=== PATIENT | male | born 1950 | race African-American/Black ===

== ENCOUNTER 2017-07-27 07:02 | Inpatient (IN) | payer MEDICARE ==
[2017-07-27] MEDS ORDERED: Furosemide 40 MG/4 ML VIAL ONE (08:06)
[2017-07-27] MEDS ORDERED: Nitroglycerin 2% Ointment 1 INCH/1 GM Packet ONE (08:06)
[2017-07-27 08:07] LABS: Troponin I 0.042 ng/mL (< 0.028)
[2017-07-27 08:08] LABS: Mode NIPPV; Modified Allen's Test POSITIVE; Oxyhemoglobin 92.8 % (94.0-97.0); Pressure Support 10 cmH2O; Sodium 139 mmol/L (135-148); Vent YES
[2017-07-27] MEDS ORDERED: Dextrose 5% in Water 1,000 ML IV PRN (09:45)
[2017-07-27] MEDS ORDERED: Acetaminophen 325 MG TAB PO PRN (09:45)
[2017-07-27] MEDS ORDERED: Dextrose 50% Abboject 50 ML SYRINGE SLOW IVP PRN (09:45)
[2017-07-27 10:42] LABS: Lactic Acid - Sepsis 1.8 mmol/L (0.5-2.2)
--- NOTE | 2017-07-27 12:14 | CON ---
DATE OF CONSULTATION: 07/27/2017 REASON FOR CONSULTATION: Heart failure. HISTORY OF PRESENT ILLNESS: Mr. Lantigua is a 67-year-old -[place] gentleman who comes to [facility] for fever and shortness of breath. He was seen in the [place] ER. Temperature was 101.5. Chest x-ray showed pulmonary edema and possible infectious process, he was transferred for further e valuation and care. He has a history of kidney transplant. He was on dialysis for some time, but dior s now had a transfer for the last 7 years. He also has a history of atrial fibrillation. He has had ablations in the past as well as cardioversion 3 times, which were unsuccessful and he is now on rat e control strategy on amiodarone and Xarelto for stroke prophylaxis. He states for the last 2 weeks, he has been having a cough and increased shortness of breath to the point where he needed to come in to the hospital yesterday and currently he is on BiPAP for his oxygen level. Otherwise, denies any c hest pain, tightness or pressure. He does have a history of coronary artery disease with stents plac ed apparently back in 2011. He follows at [facility] with Dr. Villegas. He has been edgard d or he remembers being told that he had a weak heart, but he does remember the number percentage wis e. PAST MEDICAL HISTORY: 1. End-stage renal disease, status post renal transplant approximately 7 years ago. 2. History of chronic atrial fibrillation. 3. History of coronary artery disease, status post stent in 2011. 4. Sleep apnea. 5. History of heart failure, possibly systolic in the past. 6. Type 2 diabetes. 7. Hyperlipidemia. 8. Hypertension. PAST SURGICAL HISTORY: 1. Stent placement in 2011. 2. Kidney transplant in 2009. 3. Cardiac ablation some years ago, which was unsuccessful. OUTPATIENT MEDICATIONS: 1. Amlodipine 10 mg a day. 2. Carvedilol 25 mg twice a day. 3. Pravastatin 40 mg a day. 4. Prednisone 5 mg a day. 5. Xarelto 20 mg a day. 6. Amiodarone 200 mg. 7. Valsartan 80 mg a day. 8. Mycophenolate mofetil 1000 mg twice a day. ALLERGIES: No known drug allergies. REVIEW OF SYSTEMS: A 12-point review of system was done, it is all negative unless stated in the his tory of present illness. PHYSICAL EXAMINATION: VITAL SIGNS: Temperature 98.8, pulse 74, respiration rate 30, satting 100% on 100% BiPAP. Blood pre ssure is 135/67. GENERAL: Awake, alert, oriented x3, in moderate respiratory distress. HEENT: Normocephalic, atraumatic. NECK: Supple. LUNGS: Have reduces breath sounds bilaterally. CARDIOVASCULAR: S1, S2, distant heart sounds. No murmurs or rubs, irregularly irregular. ABDOMEN: Soft, positive bowel sounds. EXTREMITIES: 1+ edema. SKIN: Warm and dry. LABORATORY WORK: Reviewed. White count of 14, hemoglobin of 13, hematocrit 43, platelet count 223. Coags with an INR of 2.5. Chemistry: Troponin was 0.04, 0.04. BNP of 686. Potassium is 3.4, chlo ride 106, carbon dioxide 21, anion gap of 14, BUN of 21, creatinine 1.34, GFR of 64, glucose of 182, lactic acid was 1.2, total bilirubin 1.7, albumin of 3.8. UA was unremarkable. Chest x-ray shows diffuse interstitial alveolar infiltrates consistent with some pulmonary edema, dif ferential diagnosis includes ARDS on infectious process. EKG is reviewed, atrial fibrillation with a heart rate in the 70s-80s. ASSESSMENT AND PLAN: 1. Acute on chronic systolic versus diastolic heart failure. 2. Fever, likely pneumonia. 3. Status post kidney transplant. 4. Immunocompromise state secondary to kidney transplant and medications. 5. Coronary artery disease, stable at this time stents in the distant past. 6. Atrial fibrillation, rate controlled on Xarelto for stroke prophylaxis. PLAN: 1. We will get echocardiogram to assess LV function and valvular structures. 2. We will increase IV diuresis to 80 mg of IV Lasix b.i.d. 3. We will request records from [facility] to see what has been done to make sure there are no changes. Thank you for letting us participate in the care of your patient. We will follow.
[2017-07-27] MEDS ORDERED: Furosemide 40 MG/4 ML VIAL SLOW IVP SCH (14:00)
[2017-07-27] MEDS: Levofloxacin 750 mg/D5W 500 MG in Premix Bag 1 BAG IVPB SCH (14:58)
[2017-07-27] MEDS: Furosemide 100 MG/10 ML VIAL SLOW IVP SCH (14:58)
--- NOTE | 2017-07-27 15:18 | CON ---
DATE OF CONSULTATION: 07/27/2017 REQUESTING PHYSICIAN: Soni Meeks M.D. REASON FOR CONSULTATION: Acute respiratory failure related to CHF exacerbation and possibly pneumoni a. HISTORY OF PRESENT ILLNESS: Mr. Lantigua is a pleasant 67-year-old black male who presented to the [facility] Emergency Department with shortness of breath that developed last night when he laid down to re st. He has been coughing up some blood tinged sputum. He has had fever as high as 101.4. He was gi ehrnan some Lasix and put on BiPAP and feels a little better. PAST MEDICAL HISTORY: 1. End-stage renal disease requiring renal transplant in 2009. 2. Coronary stent placement. 3. Obstructive sleep apnea. 4. Congestive heart failure, unknown type. 5. Atrial fibrillation. 6. Hyperlipidemia. 7. Hypertension. PAST SURGICAL HISTORY: Kidney transplant in 2009, coronary stent placement, dialysis shunt in the lef t arm, and cardiac ablation. PSYCHIATRIC HISTORY: No history of depression or schizophrenia. SOCIAL HISTORY: Does not smoke, does not consume alcohol, does not use illicit drugs. ALLERGIES: None. MEDICATIONS PRIOR TO ADMISSION: Amlodipine 5 mg daily, carvedilol 25 mg twice daily, pravastatin 40 mg daily, prednisone 5 mg daily, Xarelto 20 mg daily, amiodarone 200 mg daily, valsartan 80 mg daily, and mycophenolate mofetil 500 mg twice daily. REVIEW OF SYSTEMS: He has had subjective fever and chills. No nausea or vomiting. He has some back pain. No hematemesis. No hematochezia, no hematuria, no dysuria. PHYSICAL EXAMINATION: VITAL SIGNS: Temperature 99.8, pulse 85, blood pressure 154/65, O2 sat 100% on BiPAP, respiratory ra te 26. GENERAL: He is currently breathing on the BiPAP. He is somewhat anxious. HEENT: Pupils react. Sclerae anicteric. Oropharynx clear. NECK: No adenopathy, no JVD. LUNGS: Coarse crackles bilaterally. CARDIOVASCULAR: S1, S2 regular, no murmur, rub or gallop. ABDOMEN: Soft, nontender, nondistended. EXTREMITIES: No clubbing, cyanosis, or edema. NEUROLOGIC: Grossly intact throughout. SKIN: Shows no changes. LABORATORY AND X-RAY FINDINGS: White blood count 14, hematocrit 43.9, platelet count 223. INR 2.5. Sodium 138, potassium 3.4, chloride 106, CO2 21, BUN 21, creatinine 1.3, glucose 182. Lactate 1.2. AST 12, ALT 15, alkaline phosphatase 70. BNP 686. Chest x-ray shows severe congestive changes bila terally. ASSESSMENT: 1. Acute congestive heart failure, systolic versus diastolic. 2. Acute respiratory failure requiring mechanical ventilation. 3. Possible underlying pneumonia versus viral illness. PLAN: 1. Continue BiPAP. 2. Check flu swab. 3. Empiric antibiotics. 4. Restart his Xarelto and hold the subcu heparin. 5. Cardiology consultation. 6. Check echocardiogram. 7. Continue immunosuppression for the time being. 8. Pepcid for GI prophylaxis. 9. Xarelto should cover DVT prophylaxis. Thank you for the referral. I will follow. Total time spent with patient 45 minutes.
--- NOTE | 2017-07-27 16:43 | HP ---
REASON FOR ADMISSION: Acute respiratory failure, acute CHF exacerbation, sepsis. HISTORY OF PRESENTING ILLNESS: The patient gives history of having shortness of breath from last 2 days. This has been progressively worsening. Here in the ER, patient is coughing up pink frothy sputum. This got worse to the point that he couldn't mobilize himself at home. Patient called EMS and was taken to [facility] from there, he was transferred here. Had a temperature of 101.5 degrees at [facility]. The patient states he has history of heart failure and he does not recall the exact ejection fraction. He had a renal transplant done in 2009 and has been passing adequate urine as far as he knows. He follows up with Dr. Hunter, his electromedical equipment technician in [place]. No complaints of urinary burning or frequency. No complaints of altered phlegm. No complaints of any sore anywhere. He has not had his flu shot for this year. PAST MEDICAL AND SURGICAL HISTORY: History of renal transplant done in 2009 at [facility] in [place], his primary electromedical equipment technician is Dr. Hunter, chronic atrial fibrillation on Xarelto, coronary artery disease with prior stenting done , obstructive sleep apnea, history of CHF, diabetes mellitus type 2, dyslipidemia, hypertension. He has had prior ablation done for his atrial fibrillation. CURRENT MEDICATIONS: Norvasc 10 mg daily, Coreg 25 mg twice daily, pravastatin 40 mg p.o. daily, prednisone 5 mg daily, Xarelto 20 mg daily, amiodarone 200 mg daily, valsartan 80 mg daily, mycophenolate 1000 mg p.o. twice daily. ALLERGIES: No known drug allergies. PERSONAL HISTORY: Does not abuse alcohol or drugs. No history of smoking. FAMILY HISTORY: Cannot be accurately obtained as patient is currently short of breath and is on BiPAP. He states he stays with his mom and sister. We will confirm their medical history once he is more stable. REVIEW OF SYSTEMS: Cannot be accurately obtained as patient is severely short of breath and he is on BiPAP. Does not tolerate being off BiPAP even for 30 seconds. PHYSICAL EXAMINATION: GENERAL: The patient is a 67-year-old male who is currently on BiPAP and saturating 93%. VITAL SIGNS: Blood pressure 166/64, pulse 86 per minute, respiratory rate 30 per minute, temperature 99.8 degrees Fahrenheit here and 101 at [facility] and saturating 84% on room air and 93% on BiPAP. NECK: Supple. There is elevated JVD. HEENT: Extraocular muscles intact. Pupils reacting to light. Oral cavity mucous membranes are moist. No exudates or congestion. CARDIOVASCULAR: S1, S2 heard. Regular rhythm. RESPIRATORY: Air entry 1+ bilateral. Scattered rales plus bilaterally. ABDOMEN: Soft, bowel sounds heard. No tenderness, rigidity or guarding. EXTREMITIES: No peripheral edema or calf tenderness. VASCULAR SYSTEM:. Peripheral pulses 1+ bilateral. No ischemic ulcerations or gangrene. CENTRAL NERVOUS SYSTEM: No gross focal deficits seen. Patient is lethargic, but oriented well. PSYCHIATRIC: No hallucinations or delusions. LABORATORY AND X-RAY FINDINGS: White count of 14, H&H 13 and 43, platelet count 223, MCV is 94 with 86% neutrophils and 7% bands. PT/INR/PTT is 27, 2.5 and 42. Blood gas done in the ER shows a pH 7.38, pCO2 39, pO2 of 74, bicarbonate is 22. BNP 686. Troponin I is indeterminate at 0.04. BUN 21, creatinine 1.34, serum bicarbonate 21, potassium 3.4, glucose 182, total bilirubin 1.7. Liver enzymes within normal limits. Albumin is 3.8. Chest x- ray done shows pulmonary vascular congestion. EKG done shows sinus rhythm at 84 beats per minute. There is LBBB seen. CLINICAL IMPRESSION AND PLAN: The patient will be admitted to IM for acute respiratory failure with hypoxia due to congestive heart failure exacerbation. We will obtain an echo with 2D Doppler for LV function. He will be on Lasix 40 mg IV q.12 hourly. We will obtain blood and urine cultures. Please note patient is immunosuppressed due to transplant medications for his kidneys and we will place him on cefepime, vancomycin, and Levaquin for now. His renal function will be closely monitored. He will also continue him on a smaller dose of Coreg to accommodate for diuresis. We will continue his aspirin, amiodarone, atorvastatin, Xarelto and valsartan as before. He will be on a small dose of steroids for the first 24 hours and will be rapidly tapered to his baseline dose of 5 mg, which he takes for his transplant. I have discussed his findings with Dr. Jeff, who will be consulted for pulmonary critical care. We will also consult Dr. Johnson for Infectious Disease in view of his sepsis and Dr. Early, who is cook mayonnaise for Cardiology. We will continue to closely monitor him in ICU. CARLY
--- NOTE | 2017-07-27 16:47 | CON ---
DATE OF CONSULTATION: 07/27/2017 REASON FOR CONSULTATION: Pneumonitis. HISTORY OF PRESENT ILLNESS: A 67-year-old patient who has a history of type 2 diabetes, end-stage re nal disease with prior renal transplant, coronary artery disease, who was in his usual state of healt h until about 2 weeks prior to admission when he developed progressively worsening cough, mostly dry and then became more productive. On the day of admission, he noticed fever up to 101.4 and had some hemoptysis. He was seen at [facility] and given nebulization, IV fluids, and Zosyn and tr ansferred to the hospital. Initial findings included BP 165/65, pulse 86, respirations 30, temperatu re 99.8, O2 sat 84% on room air and 97% on 3 liters supplementation O2. The examination showed arias l HEENT exam. Neck was supple. Lungs with rhonchi diffusely scattered through lung knight. Cardiov ascular examination appeared normal. Abdomen soft without tenderness. Extremity examination unremar kable. Neurological examination was grossly nonfocal. Initial labs with white cell count 5.7, hemog lobin 12, MCV 87, platelets 330 with a normal differential. INR 2.5 and creatinine 1.34, sodium 138, potassium 3.4. Liver profile with a bilirubin of 1.7, normal transaminases and alkaline phosphatase . Troponin 0.04 and BNP 1075, albumin 3.8. His baseline creatinine is 1.04 from 06/2012. Currently , Mr. Lantigua is admitted to the ICU with BiPAP. He is awake, alert, oriented, pleasant, follows co mmands. He denies any headaches, no visual symptoms, sore throat, odynophagia, or dysphagia, cough h as subsided somewhat, feels more comfortable, no chest pain or abdominal pain. Voiding without diffi culty. No back pain or joint symptoms. No skin disorder. No neurological symptoms. PAST MEDICAL HISTORY: Type 2 diabetes, end-stage renal disease with renal transplant for a few years now, coronary artery disease, atrial fibrillation on Coumadin, hyperlipidemia, hypertension. PAST SURGICAL HISTORY: Includes stenting of coronary arteries, kidney transplant in 2009, cardiac ab lation, which did not work. MEDICATIONS: Norvasc, Coreg, pravastatin, prednisone, Xarelto, amiodarone, valsartan, mycophenolate. ALLERGIES: None. PHYSICAL EXAMINATION: VITAL SIGNS: T-max 98.8, blood pressure 136/65, pulse 78, respirations 30, saturation 100% on FIO2. SKIN: With no areas of skin lesions. Peripheral IV access. No Pringle catheter. HEENT: Ocular movements are conjugate. Sclerae white. Pupils are equal. Oral cavity with numerous teeth with quite a bit of decay and gum disease. No thrush. NECK: Supple. No jugular venous distention. LUNGS: With symmetric air entry with scattered rhonchi and few crackles in both right and left hemit horaces. CARDIOVASCULAR: S1, S2, without obvious murmurs. Irregular rate. No S3 noted: ABDOMEN: Somewhat protuberant, soft, not tender. No ascites, no organomegaly. No bladder distentio n. GENITOURINARY: Genital examination normal. EXTREMITIES: No joint inflammatory activity noted. No edema. Pulses 1+ in dorsalis pedis. He move s extremities equally on command. Plantar responses are flexor. Cognitive function appears to be in tact. LABORATORY DATA: Sodium 138, creatinine 1.34. Other values for labs as noted before. White cell co unt is up to 14,000, hemoglobin 13, platelets 223 with 86% neutrophils. Influenza A and B negative. Two sets of blood cultures are pending. Chest x-ray with diffuse bilateral pulmonary infiltrates. CURRENT MEDICATIONS: Amiodarone, aspirin, atorvastatin, Coreg, cefepime, guaifenesin, levofloxacin, vancomycin. ASSESSMENT: 1. Diabetes type 2. 2. Renal transplant with adequate renal function. 3. Subacute onset of cough with fever, diffuse pulmonary infiltrates. 4. Atrial fibrillation, on Xarelto. 5. An element of hemoptysis. DISCUSSION: Differential diagnosis includes community-acquired pneumonitis either secondary to viral or bacterial pathogens, usual community acquired pathogens versus an opportunistic infectious proces s versus a noninfectious inflammatory process including vasculitis versus CHF. Hemoptysis may be rel ated to the fact the patient takes Xarelto and then superimposed respiratory tract process. Submit a ssays for the community-acquired pathogens as well as opportunistic pathogens. Check HIV serology. May need a bronchoscopy with BAL for diagnostic purposes.
[2017-07-27] MEDS: HumaLOG 300 UNITS/3 ML VIAL SC PRN ×2 (17:51→21:24)
[2017-07-27] MEDS: Vancomycin HCl 1 GM in Premix Bag 1 BAG IVPB SCH (17:53)
[2017-07-27] MEDS ORDERED: Heparin 5,000 UNITS/ML VIAL SC SCH (21:00)
[2017-07-27] MEDS ORDERED: Pravastatin Sodium 40 MG TAB PO SCH ×2 (21:00)
[2017-07-27] MEDS ORDERED: Cefepime 1 GM in Sodium Chloride 0.9% 100 ML IVPB SCH (21:00)
[2017-07-27] MEDS ORDERED: FLU VACC TS2017-18 (>65YR) 0.5 ML SYRINGE IM ONE (21:00)
[2017-07-27] MEDS ORDERED: Atorvastatin Calcium 10 MG TAB PO SCH (21:00)
[2017-07-27] MEDS: Mycophenolate 250 MG CAP PO SCH (21:19)
[2017-07-27] MEDS: Atorvastatin Calcium 10 MG TAB PO SCH (21:20)
[2017-07-27] MEDS: Famotidine 20 MG TAB PO SCH (21:20)
[2017-07-27] MEDS: Cefepime 1 GM, Admixture Fee 1 EACH in Sterile Water 10 ML SLOW IVP SCH (21:21)
[2017-07-27] MEDS: Docusate 100 MG CAP PO SCH (21:21)
[2017-07-27] MEDS: Carvedilol 6.25 MG TAB PO SCH (21:21)
[2017-07-28 05:20] LABS: Prothrombin Time 23.9 SEC (12.0-14.7)
[2017-07-28 05:27] LABS: #Lymphocytes 0.3 thou/uL (1.20-3.40); #Monocytes 0.2 thou/uL (0.11-0.59); #Neutrophils 12.7 thou/uL (1.40-6.50); %Eosinophils 0.1 % (0.0-10.0); %Lymphocytes 2.6 % (21.0-51.0); %Monocytes 1.4 % (0.0-10.0); Hematocrit 42.6 % (42.0-52.0); Mean Platelet Volume 7.2 fL (7.4-10.4); Red Blood Cell (RBC) Count 4.49 mill/uL (4.70-6.10); White Blood Cell (WBC) Count 13.3 thou/uL (4.8-10.8)
[2017-07-28 05:41] LABS: Anion Gap 14 mmol/L (10-20); BUN (Urea Nitrogen) 25 mg/dL (8.4-25.7); Calc. Creatinine Clearance 64 mL/min (70-130); Calcium 9.3 mg/dL (7.8-10.44); Carbon Dioxide 24 mmol/L (23-31); Chloride 103 mmol/L (98-107); Estimated GFR-MDRD 68
[2017-07-28] MEDS ORDERED: Rivaroxaban 10 MG TAB PO SCH (06:00)
[2017-07-28] MEDS: HumaLOG 300 UNITS/3 ML VIAL SC PRN ×4 (06:12→21:40)
[2017-07-28] MEDS: Furosemide 100 MG/10 ML VIAL SLOW IVP SCH (06:14)
[2017-07-28] MEDS: Vancomycin HCl 1 GM in Premix Bag 1 BAG IVPB SCH ×2 (06:15→17:21)
[2017-07-28] MEDS ORDERED: Vancomycin HCl 1 GM in Premix Bag 1 BAG IVPB SCH (09:00)
[2017-07-28] MEDS: Famotidine 20 MG TAB PO SCH ×2 (09:09→21:32)
[2017-07-28] MEDS: Mycophenolate 250 MG CAP PO SCH ×2 (09:09→21:35)
[2017-07-28] MEDS: Docusate 100 MG CAP PO SCH ×2 (09:09→21:32)
[2017-07-28] MEDS: Carvedilol 6.25 MG TAB PO SCH ×2 (09:09→21:32)
[2017-07-28] MEDS: Amiodarone 200 MG TAB PO SCH (09:09)
--- NOTE | 2017-07-28 09:09 | PRG ---
DATE OF SERVICE: 07/18/2017 SUBJECTIVE: He feels better. He has been on BiPAP since last night. PHYSICAL EXAMINATION: VITAL SIGNS: Temperature 97.7, pulse 82, respirations 24, blood pressure 137/60, 24-hour intake 1117 , output 3170. HEENT: Unremarkable. NECK: No JVD. LUNGS: Inspiratory crackles at both bases. CARDIAC: S1 and S2 regular. ABDOMEN: Soft. EXTREMITIES: No edema. LABORATORY DATA: White blood cell count 13.3, hematocrit 42, platelet count 223. Sodium 137, potass ium 3.5, chloride 103, CO2 24, BUN 25, creatinine 1.2, glucose 223. INR 2.1. ASSESSMENT: 1. Pulmonary edema, which has improved with diuresis. 2. Acute respiratory failure which is improved to the point where he is off mechanical ventilation. 3. History of renal transplant with current immunosuppression. PLAN: 1. Can transfer to the floor. 2. Repeat chest x-ray. 3. Continue antibiotics. 4. Continue diuresis. 5. Discussed with the patient.
[2017-07-28] MEDS: Levofloxacin 750 mg/D5W 500 MG in Premix Bag 1 BAG IVPB SCH (09:12)
[2017-07-28] MEDS: Valsartan 80 MG TAB PO SCH ×2 (09:19→09:20)
--- NOTE | 2017-07-28 09:51 | PDOC.PN ---
- Subjective Encounter Start Date: 07/28/17 Encounter Start Time: 08:15 Subjective: breathing better, no sob/chest pain -: still bringing up sputum which is blood tinged - Objective Resuscitation Status: Resuscitation Status FULL:Full Resuscitation MAR Reviewed: Yes Vital Signs & Weight: Vital Signs (12 hours) Temp Pulse Resp BP Pulse Ox 07/28/17 09:09 131/60 07/28/17 07:56 97.7 F 87 16 100 07/28/17 07:00 97.7 F 07/28/17 06:09 78 28 H 100 07/28/17 04:00 98.6 F 07/28/17 00:38 75 25 H 98 07/28/17 00:00 98.8 F Weight Weight 179 lb 7.3 oz Most Recent Monitor Data Heart Rate from ECG 81 NIBP 130/62 NIBP BP-Mean 92 Respiration from ECG 41 SpO2 98 I&O: 07/27/17 07/28/17 07/29/17 06:59 06:59 06:59 Intake Total 1117 240 Output Total 3170 600 Balance -2052 Result Diagrams: 07/28/17 04:54 07/28/17 04:54 Additional Labs: Accuchecks 07/28/17 07/27/17 07/27/17 05:44 21:16 17:06 POC Glucose 198 H 235 H 189 H 07/27/17 11:53 POC Glucose 144 H Phys Exam - Physical Examination HEENT: PERRLA, moist MMs Neck: no JVD, supple Respiratory: no wheezing, no rales rhonchi++ Cardiovascular: RRR, no significant murmur Gastrointestinal: soft, non-tender, positive bowel sounds Musculoskeletal: no edema, pulses present Neurological: non-focal, moves all 4 limbs Psychiatric: A&O x 3 Dx/Plan (1) Acute exacerbation of CHF (congestive heart failure) Code(s): I50.9 - HEART FAILURE, UNSPECIFIED Status: Acute Qualifiers: Congestive heart failure type: diastolic Qualified Code(s): I50.33 - Acute on chronic diastolic (congestive) heart failure Comment: ef of 50% (2) PNA (pneumonia) Code(s): J18.9 - PNEUMONIA, UNSPECIFIED ORGANISM Status: Acute Qualifiers: Pneumonia type: due to unspecified organism Laterality: bilateral (3) Immunosuppressed status Code(s): D89.9 - DISORDER INVOLVING THE IMMUNE MECHANISM, UNSPECIFIED Status: Chronic (4) H/O kidney transplant Status: Chronic (5) Sepsis Code(s): A41.9 - SEPSIS, UNSPECIFIED ORGANISM Status: Acute Qualifiers: Sepsis type: sepsis due to unspecified organism Qualified Code(s): A41.9 - Sepsis, unspecified organism (6) Acute respiratory failure with hypoxia Code(s): J96.01 - ACUTE RESPIRATORY FAILURE WITH HYPOXIA Status: Resolved Comment: is off bipap from last night (7) HTN (hypertension) Code(s): I10 - ESSENTIAL (PRIMARY) HYPERTENSION Status: Chronic Qualifiers: Hypertension type: essential hypertension Qualified Code(s): I10 - Essential (primary) hypertension (8) CAD (coronary artery disease) Code(s): I25.10 - ATHSCL HEART DISEASE OF [place] CORONARY ARTERY W/O ANG PCTRS Status: Chronic Qualifiers: Coronary Disease-Associated Artery/Lesion type: [place] artery [place] vs. transplanted heart: [place] heart Associated angina: without angina Qualified Code(s): I25.10 - Atherosclerotic heart disease of [place] coronary artery without angina pectoris - Plan is on broad spectrum antibiotics due to immunosuppressed state -: cefepime, levaq and vanc. Await full cultures -: may tx to telemetry -: cxr this am looks better, has diuresed well -: may scale back his lasix to 40 q12h if ok with cardio * . Review of Systems - Medications/Allergies Allergies/Adverse Reactions: Allergies Allergy/AdvReac Type Severity Reaction Status Date / Time No Allergy Information Allergy Verified 07/27/17 15:42 Available Medications: Current Medications Acetaminophen (Tylenol) 650 mg PO Q4H PRN PRN Reason: Headache/Fever or Pain Albuterol/Ipratropium (Duoneb) 3 ml NEB [id number] [facility] Last Admin: 07/28/17 06:09 Dose: 3 ml Amiodarone HCl (Cordarone) 200 mg PO DAILY [facility] Last Admin: 07/28/17 09:09 Dose: 200 mg Aspirin (Aspirin Chewable) 81 mg PO DAILY [facility] Last Admin: 07/28/17 09:09 Dose: 81 mg Atorvastatin Calcium (Lipitor) 10 mg PO HS [facility] Last Admin: 07/27/17 21:20 Dose: 10 mg Carvedilol (Coreg) 6.25 mg PO BID [facility] Last Admin: 07/28/17 09:09 Dose: 6.25 mg Dextrose/Water (Dextrose 50%) 25 gm SLOW IVP PRN PRN PRN Reason: Hypoglycemia Docusate Sodium (Colace) 100 mg PO BID [facility] Last Admin: 07/28/17 09:09 Dose: 100 mg Famotidine (Pepcid) 20 mg PO BID [facility] Last Admin: 07/28/17 09:09 Dose: 20 mg Furosemide (Lasix) 80 mg SLOW IVP 0600,1400 [facility] Last Admin: 07/28/17 06:14 Dose: 80 mg Glucagon (Glucagon) 1 mg IM PRN PRN PRN Reason: Hypoglycemia Guaifenesin/Dextromethorphan (Robitussin Dm) 15 ml PO Q4H PRN PRN Reason: Cough Dextrose/Water (D5w) 1,000 mls @ 0 mls/hr IV .Q0M PRN; As Directed PRN Reason: Hypoglycemia Levofloxacin 500 mg/ Device 100 mls @ 100 mls/hr IVPB 1100 [facility] Last Admin: 07/28/17 09:12 Dose: 100 mls Cefepime HCl 1 gm/Miscellaneous Medication 1 each/ Sterile Water 10 mls @ 120 mls/hr SLOW IVP Q12HR [facility] Last Admin: 07/27/17 21:21 Dose: 10 mls Vancomycin HCl 1 gm/ Device 200 mls @ 200 mls/hr IVPB 0600,1800 [facility] Last Admin: 07/28/17 06:15 Dose: 200 mls Insulin Human Lispro (Humalog) 0 units SC .MILD SLIDING SCALE PRN PRN Reason: Mild Correctional Scale Last Admin: 07/28/17 06:12 Dose: 2 unit/kg Methylprednisolone Sodium Succinate (Solu-Medrol) 20 mg IVP Q8HR [facility] Last Admin: 07/28/17 06:14 Dose: 20 mg Miscellaneous Medication (Pharmacy To Dose) 0 each IVPB ASDIR [facility] Mycophenolate Mofetil (Cellcept) 1,000 mg PO BID [facility] Last Admin: 07/28/17 09:09 Dose: 1,000 mg Pneumococcal Polyvalent Vaccine (Pneumovax 23) 0.5 ml IM .ONCE ONE Stop: 07/29/17 15:46 Rivaroxaban (Xarelto) 20 mg PO 1700 [facility] Sodium Chloride (Flush - Normal Saline) 10 ml IVF Q12HR [facility] Last Admin: 07/28/17 09:12 Dose: 10 ml Sodium Chloride (Flush - Normal Saline) 10 ml IVF PRN PRN PRN Reason: Saline Flush Valsartan (Diovan) 80 mg PO DAILY [facility] Last Admin: 07/28/17 09:20 Dose: 80 mg
[2017-07-28] MEDS: Cefepime 1 GM, Admixture Fee 1 EACH in Sterile Water 10 ML SLOW IVP SCH ×2 (10:21→21:34)
--- NOTE | 2017-07-28 10:39 | RAD ---
PORTABLE CHEST: Date: 07/28/17 HISTORY: Pneumonia. COMPARISON: 07/27/17. FINDINGS/IMPRESSION: Mild cardiomegaly with prominent aortic calcification. There is vascular engorgement. Interstitial an d hazy alveolar opacity in the mid and lower lungs could represent edema or infiltrate. Not significa ntly changed from 07/27/17. POS: [facility]
--- NOTE | 2017-07-28 11:01 | PDOC.CTH ---
<Blanca Tolbert - Last Filed: 07/28/17 10:55> Cardiology Progress Note - Subjective The pt seen and examined. No overnight events. No cardiac complaints. No SOB or distress with 1.5LNC. Reported that he had long hx of Aflutter/Afib with multiple Cardioversion and Aflutter ablation by Dr Villegas in [place] and Dr Vincent, in [place]. He denied palpitation, fluttering or other cardiac complaints. At this moment, the pt does not want any medication adjustment or procedure for his AFlutter/Afib. - Objective Vital Signs Temp Pulse Resp BP Pulse Ox 07/28/17 09:09 131/60 07/28/17 07:56 97.7 F 87 16 100 07/28/17 07:00 97.7 F 07/28/17 06:09 78 28 H 100 07/28/17 04:00 98.6 F 07/28/17 00:38 75 25 H 98 07/28/17 00:00 98.8 F Weight 179 lb 7.3 oz 07/27/17 07/28/17 07/29/17 06:59 06:59 06:59 Intake Total 1117 480 Output Total 3170 900 Balance -9993 -420 - Physical Examination General/Neuro: alert & oriented x3 Neck: no JVD present Lungs: other: (coases and diminished at bases) Heart: other: (Irregular) Abdomen: other: (soft, but distended) Extremities: other: (No edema) - Telemetry Telemetry Rhythm: AFlutter with HR 70-80s - Labs Result Diagrams: 07/28/17 04:54 07/28/17 04:54 Troponin/CKMB CK-MB (CK-2) 1.2 ng/mL (0-6.6) 07/27/17 07:34 Troponin I 0.042 ng/mL (< 0.028) H 07/27/17 07:34 - Assessment/Plan 1. Acute on chronic systolic HF - Stable; change Lasix from 80mg to 40mg IV BID ; Echo on 07/27/17 showed EF 81-55% with mild LVH, mild LAE, mild MR and TR; cont. monitor 2. PNA - on IV antibiotics; managed by PCP 3. Immunosuppressed status 2ndary to hx of Kidney tx in 2009 - followed by ID service 4. Aflutter/Afib - Rate well controlled with Amiodarone; on Xarelto; at this moment, he does not want to adjust or have any procedure for his current AFlutter/Afib. CAD with Hx of Stent in 2011 - stable with BBlocker and ASA; no LINDSEY due to hx of CKD 5. HTN - stable with current medication; cont. monitor 6. DM type 2 - ACHS BG check with insulin SS; managed by PCP 7. Hyperlipidemia - on Statin medication MAR reviewed Review of Systems - Review of Systems Constitutional: reports: no symptoms reported EENTM: reports: no symptoms reported Respiratory: reports: no symptoms reported Cardiac (ROS): reports: no symptoms reported ABD/GI: reports: no symptoms reported : reports: no symptoms reported Musculoskeletal: reports: no symptoms reported <Linus Lambert - Last Filed: 07/28/17 17:05> Cardiology Progress Note - Objective Vital Signs Temp Pulse Pulse Pulse Resp BP BP 07/28/17 12:53 81 13 07/28/17 12:00 97.8 F 07/28/17 09:29 76 101 H 129/65 07/28/17 09:09 131/60 07/28/17 07:56 97.7 F 87 16 07/28/17 07:00 97.7 F 07/28/17 06:09 78 28 H BP Pulse Ox Pulse Ox Pulse Ox 07/28/17 12:53 98 07/28/17 12:00 07/28/17 09:29 145/72 H 93 L 93 L 07/28/17 09:09 07/28/17 07:56 100 07/28/17 07:00 07/28/17 06:09 100 Weight 179 lb 7.3 oz 07/27/17 07/28/17 07/29/17 06:59 06:59 06:59 Intake Total 1117 960 Output Total 1042 1195 Balance -2052 -614 - Labs Result Diagrams: 07/28/17 04:54 07/28/17 04:54 Troponin/CKMB CK-MB (CK-2) 1.2 ng/mL (0-6.6) 07/27/17 07:34 Troponin I 0.042 ng/mL (< 0.028) H 07/27/17 07:34 - Assessment/Plan Pt. seen and eval. by me. I agree with the A/P by the BONE CRUSHER. His rate is well controlled. Continue present cardiac meds.
[2017-07-28] MEDS: Furosemide 40 MG/4 ML VIAL SLOW IVP SCH (15:20)
[2017-07-28] MEDS: Atorvastatin Calcium 10 MG TAB PO SCH (21:38)
[2017-07-28 23:55] VITALS: BMI 26.9
--- NOTE | 2017-07-29 01:41 | PRG ---
DATE OF SERVICE: 07/28/2017 SUBJECTIVE: The patient is not on BiPAP anymore. He is feeling much better. His account now is clear and he basically remembers starting with cough and then had a fever, progressively worsening dyspnea, and hemoptysis. His temperature is normal, although it has been normal all along. OBJECTIVE: VITAL SIGNS: Blood pressure 130/60, heart rate 76, O2 sat 93 with nasal cannula. GENERAL: Awake, alert, oriented. LUNGS: With symmetric air entry with a few crackles here and there. HEART: S1, S2, regular rate. ABDOMEN: Soft, not distended. EXTREMITIES: Moves all extremities equally. LABORATORY DATA: White cell count today is 13.3, hemoglobin 13, platelets 223 with 95% neutrophils. Sodium 137, creatinine 1.28, GFR estimated at 68. The respiratory virus PCR panel negative. Blood cultures thus far negative. The chest x-ray repeat about the same. The patient had echocardiogram done, which showed an EF of 50% to 55%, multiple branch block morphology, normal valves, otherwise mildly elevated pulmonary artery pressure. ASSESSMENT AND DISCUSSION: Type 2 diabetes, renal transplant, adequate renal function, subacute onset of cough with fever, diffuse pulmonary infiltrates, atrial fibrillation on Xarelto, element of hemoptysis. Again, community- acquired pneumonitis, either with the usual viral or bacterial pathogens versus an opportunistic infectious process with the concern for Pneumocystis sp. Assays are pending and the viral assays are negative. Continue current management. MTDD
[2017-07-29] MEDS: Furosemide 40 MG/4 ML VIAL SLOW IVP SCH ×2 (05:13→14:52)
[2017-07-29 05:24] LABS: #Lymphocytes 0.4 thou/uL (1.20-3.40); #Monocytes 0.4 thou/uL (0.11-0.59); #Neutrophils 14.5 thou/uL (1.40-6.50); %Lymphocytes 2.5 % (21.0-51.0); %Monocytes 2.5 % (0.0-10.0); Hematocrit 41.4 % (42.0-52.0); Mean Platelet Volume 7.1 fL (7.4-10.4); Red Blood Cell (RBC) Count 4.37 mill/uL (4.70-6.10); White Blood Cell (WBC) Count 15.3 thou/uL (4.8-10.8)
[2017-07-29 05:50] LABS: Vancomycin, Trough 13.3 ug/mL
[2017-07-29 05:51] LABS: Anion Gap 14 mmol/L (10-20); BUN (Urea Nitrogen) 32 mg/dL (8.4-25.7); Calc. Creatinine Clearance 78 mL/min (70-130); Calcium 8.9 mg/dL (7.8-10.44); Carbon Dioxide 23 mmol/L (23-31); Chloride 99 mmol/L (98-107); Estimated GFR-MDRD 72
[2017-07-29] MEDS: Vancomycin HCl 1 GM in Premix Bag 1 BAG IVPB SCH ×2 (06:30→18:31)
[2017-07-29] MEDS: HumaLOG 300 UNITS/3 ML VIAL SC PRN ×4 (07:44→22:27)
--- NOTE | 2017-07-29 08:55 | PDOC.CTH ---
<Blanca Tolbert - Last Filed: 07/29/17 08:53> Cardiology Progress Note - Subjective the pt seen and examined. No overnight events. No cardiac complaints. He has cont. coughing since this AM. - Objective Vital Signs Temp Pulse Resp BP BP BP Pulse Ox 07/29/17 08:41 97.8 F 89 18 132/67 97 07/29/17 07:11 80 14 07/29/17 04:00 97.8 F 82 24 H 137/65 94 L 07/29/17 00:24 78 16 97 07/28/17 22:35 98.0 F 78 24 H 94 L 07/28/17 22:15 98.0 F 86 24 H 167/79 H 94 L 07/28/17 21:32 150/62 H Weight 202 lb 07/28/17 07/29/17 07/30/17 06:59 06:59 06:59 Intake Total 1117 1700 Output Total 3170 1975 Balance -2052 - Physical Examination General/Neuro: alert & oriented x3 Neck: no JVD present Lungs: other: (coases and very diminizhed at bases) Heart: other: (irregular) Abdomen: soft Extremities: other: (No edema) - Telemetry Telemetry Rhythm: Aflutter 70-80s - Labs Result Diagrams: 07/29/17 04:59 07/29/17 04:59 Troponin/CKMB CK-MB (CK-2) 1.2 ng/mL (0-6.6) 07/27/17 07:34 Troponin I 0.042 ng/mL (< 0.028) H 07/27/17 07:34 - Assessment/Plan 1. Acute on chronic systolic HF - Stable; change Lasix from 80mg to 40mg IV BID ; Echo on 07/27/17 showed EF 50-55% with mild LVH, mild LAE, mild MR and TR; cont. monitor 2. PNA - on IV antibiotics; Order PRN cough medication; managed by PCP 3. Immunosuppressed status 2ndary to hx of Kidney tx in 2009 - followed by ID service 4. Aflutter/Afib - Rate well controlled with Amiodarone; on Xarelto; at this moment, he does not want to adjust or have any procedure for his current AFlutter/Afib at this moment. CAD with Hx of Stent in 2012 - stable with BBlocker and ASA; no LINDSEY due to hx of CKD 5. HTN - stable with current medication; cont. monitor 6. DM type 2 - ACHS BG check with insulin SS; managed by PCP 7. Hyperlipidemia - on Statin medication MAR reviewed * Start KCl 40mEq PO x 1 now and 20mEq PO daily from tomorrow Review of Systems - Review of Systems Constitutional: reports: no symptoms reported EENTM: reports: no symptoms reported Respiratory: reports: see HPI Cardiac (ROS): reports: no symptoms reported ABD/GI: reports: no symptoms reported : reports: no symptoms reported Musculoskeletal: reports: no symptoms reported Skin: reports: no symptoms reported <Linus Lambert - Last Filed: 07/29/17 11:36> Cardiology Progress Note - Objective Vital Signs Temp Pulse Resp BP BP Pulse Ox 07/29/17 09:54 150/62 H 07/29/17 08:41 97.8 F 89 18 132/67 97 07/29/17 07:11 80 14 07/29/17 04:00 97.8 F 82 24 H 137/65 94 L 07/29/17 00:24 78 16 97 Weight 202 lb 07/28/17 07/29/17 07/30/17 06:59 06:59 06:59 Intake Total 1117 1700 Output Total 3170 1974 - Labs Result Diagrams: 07/29/17 04:59 07/29/17 04:59 Troponin/CKMB CK-MB (CK-2) 1.2 ng/mL (0-6.6) 07/27/17 07:34 Troponin I 0.042 ng/mL (< 0.028) H 07/27/17 07:34 - Assessment/Plan pt. seen and evaluated. I agree with the A/P by the ADMIN SECRETARY. cardiac status is stable. I will sign off. if any cardiac isuues please page me again. He wishes to follow up with his prior account executive after d/c.
[2017-07-29] MEDS ORDERED: Potassium Chloride 20 MEQ TAB PO SCH (09:15)
[2017-07-29] MEDS: Amiodarone 200 MG TAB PO SCH (09:54)
[2017-07-29] MEDS: Famotidine 20 MG TAB PO SCH ×2 (09:54→20:30)
[2017-07-29] MEDS: Carvedilol 6.25 MG TAB PO SCH ×2 (09:54→20:30)
[2017-07-29] MEDS: Docusate 100 MG CAP PO SCH ×2 (09:54→20:29)
[2017-07-29] MEDS: Mycophenolate 250 MG CAP PO SCH ×2 (09:55→20:32)
[2017-07-29] MEDS: Potassium Chloride 20 MEQ TAB PO SCH (09:55)
--- NOTE | 2017-07-29 10:05 | PRG ---
DATE OF SERVICE: 07/29/2017 Mr. Lantigua is feeling better today, had no acute complaints. PHYSICAL EXAMINATION: VITAL SIGNS: Temperature 97.8, pulse 89, respirations 18, O2 sat 97% on 2 liters, blood pressure 132 /67. HEENT: Unremarkable. NECK: No JVD. CHEST: Clear except at the bases where he has crackles. CARDIAC: S1 and S2 regular. ABDOMEN: Soft. EXTREMITIES: No edema. LABORATORY DATA: Sodium 133, potassium 3.4, chloride 99, CO2 of 23, BUN 32, creatinine 1.2, glucose 318. White blood cell count 15.3, hematocrit 41.4, platelet count 265. ASSESSMENT: 1. Diastolic cardiac dysfunction with congestive heart failure. 2. Possible pneumonia. 3. Atrial flutter/atrial fibrillation. RECOMMENDATIONS: 1. Continue current antibiotics. 2. IV steroids. 3. Diuretics.
[2017-07-29] MEDS: Cefepime 1 GM, Admixture Fee 1 EACH in Sterile Water 10 ML SLOW IVP SCH ×2 (10:08→20:30)
[2017-07-29] MEDS: Cepastat Lozenges 1 LOZ PO PRN ×2 (10:43→20:38)
[2017-07-29] MEDS: Levofloxacin 750 mg/D5W 500 MG in Premix Bag 1 BAG IVPB SCH (10:44)
--- NOTE | 2017-07-29 10:59 | PDOC.PN ---
- Subjective Encounter Start Date: 07/29/17 Encounter Start Time: 12:00 Subjective: Some recurrent coughing overnight, minimal suptum. Feels much -: better than at admission. - Objective Resuscitation Status: Resuscitation Status FULL:Full Resuscitation MAR Reviewed: Yes Vital Signs & Weight: Vital Signs (12 hours) Temp Pulse Resp BP BP Pulse Ox 07/29/17 09:54 150/62 H 07/29/17 08:41 97.8 F 89 18 132/67 97 07/29/17 07:11 80 14 07/29/17 04:00 97.8 F 82 24 H 137/65 94 L 07/29/17 00:24 78 16 97 Weight Weight 202 lb Most Recent Monitor Data Heart Rate from ECG 85 NIBP 150/62 NIBP BP-Mean 104 Respiration from ECG 31 SpO2 91 I&O: 07/28/17 07/29/17 07/30/17 06:59 06:59 06:59 Intake Total 1117 1700 Output Total 3170 1974 Result Diagrams: 07/29/17 04:59 07/29/17 04:59 Additional Labs: Accuchecks 07/29/17 07/28/17 07/28/17 04:20 21:23 17:14 POC Glucose 270 H 317 H 239 H 07/28/17 12:37 POC Glucose 290 H Phys Exam - Physical Examination Constitutional: NAD HEENT: moist MMs Respiratory: no wheezing, no rales, no rhonchi Cardiovascular: RRR, no significant murmur Gastrointestinal: soft, positive bowel sounds Neurological: non-focal, moves all 4 limbs Psychiatric: normal affect, A&O x 3 Dx/Plan (1) PNA (pneumonia) Code(s): J18.9 - PNEUMONIA, UNSPECIFIED ORGANISM Status: Acute Qualifiers: Pneumonia type: due to unspecified organism Laterality: bilateral Plan: Abx day #3 Comment: community acquired, on chronic immunosupression, continue antibiotics Cefepime, Levaquin, and Vanc (2) Acute exacerbation of CHF (congestive heart failure) Code(s): I50.9 - HEART FAILURE, UNSPECIFIED Status: Acute Qualifiers: Congestive heart failure type: diastolic Qualified Code(s): I50.33 - Acute on chronic diastolic (congestive) heart failure Plan: Improving with diuresis Comment: ef of 50% (3) Sepsis Code(s): A41.9 - SEPSIS, UNSPECIFIED ORGANISM Status: Acute Qualifiers: Sepsis type: sepsis due to unspecified organism Qualified Code(s): A41.9 - Sepsis, unspecified organism Plan: improving, no further fever, leukocytosis persistent up to 15,000 (4) H/O kidney transplant Status: Chronic (5) Immunosuppressed status Code(s): D89.9 - DISORDER INVOLVING THE IMMUNE MECHANISM, UNSPECIFIED Status: Chronic (6) Acute respiratory failure with hypoxia Code(s): J96.01 - ACUTE RESPIRATORY FAILURE WITH HYPOXIA Status: Resolved Comment: is off bipap (7) CAD (coronary artery disease) Code(s): I25.10 - ATHSCL HEART DISEASE OF [place] CORONARY ARTERY W/O ANG PCTRS Status: Chronic Qualifiers: Coronary Disease-Associated Artery/Lesion type: [place] artery [place] vs. transplanted heart: [place] heart Associated angina: without angina Qualified Code(s): I25.10 - Atherosclerotic heart disease of [place] coronary artery without angina pectoris (8) HTN (hypertension) Code(s): I10 - ESSENTIAL (PRIMARY) HYPERTENSION Status: Chronic Qualifiers: Hypertension type: essential hypertension Qualified Code(s): I10 - Essential (primary) hypertension - Plan cont current plan of care, continue antibiotics, out of bed/ambulate, DVT proph w/SCDs * . - Discharge Day Encounter end time: 12:30
[2017-07-29] MEDS: Guaifenesin DM 100-10/5 ML UDCUP PO PRN (15:04)
[2017-07-29] MEDS: Rivaroxaban 10 MG TAB PO SCH (18:31)
[2017-07-29] MEDS: Atorvastatin Calcium 10 MG TAB PO SCH (20:30)
[2017-07-30 05:25] LABS: Vancomycin, Trough 15.7 ug/mL
[2017-07-30] MEDS: Vancomycin HCl 1 GM in Premix Bag 1 BAG IVPB SCH ×2 (05:39→16:28)
[2017-07-30] MEDS: Furosemide 40 MG/4 ML VIAL SLOW IVP SCH ×2 (05:39→16:11)
--- NOTE | 2017-07-30 05:46 | PRG ---
DATE OF SERVICE: 07/29/2017 SUBJECTIVE: The patient has been transferred to the floor. He had been doing well, but over the past few hours has started coughing a lot, mostly dry cough. No headaches, no dyspnea, no abdominal pain or diarrhea. No genitourinary symptoms. PHYSICAL EXAMINATION: VITAL SIGNS: T-max 98.5, blood pressure 150/77, pulse 77, respirations 16, O2 sat 92%, a little bit down from 97 earlier today. GENERAL: He is awake, cough intermittently, oriented, pleasant. HEENT: Ocular movements are conjugate. LUNGS: With symmetric air entry with few crackles in the left base, no wheezing. HEART: S1, S2, regular rate. ABDOMEN: Soft. Not distended. Moves all extremities equally. No edema. LABORATORY DATA: White cell count 15.3, hemoglobin 13, platelets 265. Sodium 133, creatinine 1.21, which is improved from previous one, glucose 318, CMV DNA PCR was negative. HIV nonreactive. Blood cultures no growth at 48 hours. Repeat chest x-rays from yesterday. Currently, receiving cefepime, levofloxacin , methylprednisolone. ASSESSMENT AND DISCUSSION: Type 2 diabetes, renal transplant with adequate renal function, subacute onset of cough with fever, diffuse pulmonary infiltrates. The patient has improved, but we need to consider still opportunistic infections in the differential diagnosis, thus far the assays are negative. We will submit pneumocystis PCR and sputum as well as Fungitell assay , again bronchoscopy may be needed depending on clinical progress. Continues to keep current regimen. MTDD
[2017-07-30] MEDS: HumaLOG 300 UNITS/3 ML VIAL SC PRN ×3 (05:51→17:48)
--- NOTE | 2017-07-30 08:06 | PDOC.PN ---
- Subjective Encounter Start Date: 07/30/17 Encounter Start Time: 08:15 Subjective: Patient with persistent cough today. Otherwise doing well. No SOB. Not -: requiring oxygen. - Objective Resuscitation Status: Resuscitation Status FULL:Full Resuscitation MAR Reviewed: Yes Vital Signs & Weight: Vital Signs (12 hours) Temp Pulse Resp BP Pulse Ox 07/30/17 07:14 94 L 07/30/17 07:12 75 16 94 L 07/30/17 04:34 98.2 F 78 18 147/74 H 07/30/17 01:44 97 07/30/17 00:49 73 156/76 H 07/30/17 00:10 78 18 97 07/30/17 00:00 98.3 F 79 20 174/80 H 95 07/29/17 20:25 98.0 F 80 20 167/81 H 93 L Weight Weight 189 lb 9.6 oz Most Recent Monitor Data Heart Rate from ECG 85 NIBP 150/62 NIBP BP-Mean 104 Respiration from ECG 31 SpO2 91 I&O: 07/29/17 07/30/17 07/31/17 06:59 06:59 06:59 Intake Total 1700 1370 Output Total 1975 Balance -275 1370 Result Diagrams: 07/29/17 04:59 07/29/17 04:59 Additional Labs: Accuchecks 07/30/17 07/29/17 07/29/17 05:49 21:56 17:28 POC Glucose 348 H 316 H 318 H 07/29/17 11:40 POC Glucose 335 H Phys Exam - Physical Examination Constitutional: NAD HEENT: moist MMs Respiratory: no wheezing, no rales, no rhonchi Cardiovascular: RRR, no significant murmur Gastrointestinal: soft, positive bowel sounds Neurological: non-focal, moves all 4 limbs Psychiatric: normal affect, A&O x 3 Dx/Plan (1) PNA (pneumonia) Code(s): J18.9 - PNEUMONIA, UNSPECIFIED ORGANISM Status: Acute Qualifiers: Pneumonia type: due to unspecified organism Laterality: bilateral Comment: community acquired, on chronic immunosupression, continue antibiotics Cefepime, Levaquin, and Vanc (2) Acute exacerbation of CHF (congestive heart failure) Code(s): I50.9 - HEART FAILURE, UNSPECIFIED Status: Acute Qualifiers: Congestive heart failure type: diastolic Qualified Code(s): I50.33 - Acute on chronic diastolic (congestive) heart failure Comment: ef of 50% (3) Sepsis Code(s): A41.9 - SEPSIS, UNSPECIFIED ORGANISM Status: Acute Qualifiers: Sepsis type: sepsis due to unspecified organism Qualified Code(s): A41.9 - Sepsis, unspecified organism (4) H/O kidney transplant Status: Chronic (5) Immunosuppressed status Code(s): D89.9 - DISORDER INVOLVING THE IMMUNE MECHANISM, UNSPECIFIED Status: Chronic (6) Acute respiratory failure with hypoxia Code(s): J96.01 - ACUTE RESPIRATORY FAILURE WITH HYPOXIA Status: Resolved Comment: is off bipap (7) CAD (coronary artery disease) Code(s): I25.10 - ATHSCL HEART DISEASE OF [place] CORONARY ARTERY W/O ANG PCTRS Status: Chronic Qualifiers: Coronary Disease-Associated Artery/Lesion type: [place] artery [place] vs. transplanted heart: [place] heart Associated angina: without angina Qualified Code(s): I25.10 - Atherosclerotic heart disease of [place] coronary artery without angina pectoris (8) HTN (hypertension) Code(s): I10 - ESSENTIAL (PRIMARY) HYPERTENSION Status: Chronic Qualifiers: Hypertension type: essential hypertension Qualified Code(s): I10 - Essential (primary) hypertension - Plan cont current plan of care, continue antibiotics, out of bed/ambulate, DVT proph w/SCDs * . - Discharge Day Encounter end time: 08:45
[2017-07-30] MEDS: Mycophenolate 250 MG CAP PO SCH ×2 (10:46→21:20)
[2017-07-30] MEDS: Levofloxacin 750 mg/D5W 500 MG in Premix Bag 1 BAG IVPB SCH (10:46)
[2017-07-30] MEDS: Potassium Chloride 20 MEQ TAB PO SCH (10:48)
[2017-07-30] MEDS: Famotidine 20 MG TAB PO SCH ×2 (10:48→20:39)
[2017-07-30] MEDS: Docusate 100 MG CAP PO SCH ×2 (10:48→20:39)
[2017-07-30] MEDS: Carvedilol 6.25 MG TAB PO SCH ×2 (10:49→20:39)
[2017-07-30] MEDS: Valsartan 80 MG TAB PO SCH (10:49)
[2017-07-30] MEDS: Amiodarone 200 MG TAB PO SCH (10:49)
--- NOTE | 2017-07-30 10:56 | PRG ---
DATE OF SERVICE: 07/30/2017 SUBJECTIVE: He is feeling much better. He ambulates in the jack. OBJECTIVE: VITAL SIGNS: Temperature is 98.2, pulse 85, respiration 16, sat 94%, blood pressure 147/74. HEENT: Unremarkable. NECK: Supple. No JVD. CHEST: Clear. CARDIAC: S1 and S2 regular. ABDOMEN: Soft. EXTREMITIES: No edema. ASSESSMENT: Improved pulmonary status - likely pulmonary edema at the time of admission, I am very s keptical that this was pneumonia to begin with. RECOMMENDATION: 1. I would recommend changing him to oral antibiotic medication - perhaps Omnicef and Levaquin. 2. I would discontinue the vancomycin. 3. If he is doing well, I think he can go home as early as tomorrow.
[2017-07-30] MEDS: Cefepime 1 GM, Admixture Fee 1 EACH in Sterile Water 10 ML SLOW IVP SCH ×2 (11:20→20:39)
[2017-07-30] MEDS: Guaifenesin DM 100-10/5 ML UDCUP PO PRN ×3 (11:39→20:40)
[2017-07-30] MEDS: Cepastat Lozenges 1 LOZ PO PRN ×2 (11:39→16:11)
[2017-07-30] MEDS: Rivaroxaban 10 MG TAB PO SCH (16:25)
[2017-07-30] MEDS: Atorvastatin Calcium 10 MG TAB PO SCH (20:38)
[2017-07-30] MEDS: predniSONE 20 MG TAB PO SCH (20:39)
[2017-07-30] MEDS: Insulin Detemir 100 UNITS/ML 15 UNITS in Pre-Filled Syringe SC SCH (20:40)
[2017-07-31 04:45] LABS: #Lymphocytes 0.3 thou/uL (1.20-3.40); #Monocytes 0.5 thou/uL (0.11-0.59); #Neutrophils 10.5 thou/uL (1.40-6.50); %Eosinophils 0.1 % (0.0-10.0); %Lymphocytes 2.6 % (21.0-51.0); %Monocytes 4.8 % (0.0-10.0); Hematocrit 42.1 % (42.0-52.0); Mean Platelet Volume 7.1 fL (7.4-10.4); Red Blood Cell (RBC) Count 4.45 mill/uL (4.70-6.10); White Blood Cell (WBC) Count 11.3 thou/uL (4.8-10.8)
[2017-07-31 04:49] LABS: Hematocrit 40.9 % (42.0-52.0)
[2017-07-31 05:02] LABS: Anion Gap 11 mmol/L (10-20); BUN (Urea Nitrogen) 27 mg/dL (8.4-25.7); Calc. Creatinine Clearance 79 mL/min (70-130); Calcium 8.8 mg/dL (7.8-10.44); Carbon Dioxide 28 mmol/L (23-31); Chloride 98 mmol/L (98-107); Estimated GFR-MDRD 80
[2017-07-31] MEDS: Furosemide 40 MG/4 ML VIAL SLOW IVP SCH ×2 (06:14→16:57)
[2017-07-31] MEDS: Vancomycin HCl 1 GM in Premix Bag 1 BAG IVPB SCH (06:15)
--- NOTE | 2017-07-31 08:17 | PDOC.PN ---
- Subjective Encounter Start Date: 07/31/17 Encounter Start Time: 09:00 Subjective: Patient feeling much better. Decreased cough. Ambulating the -: halls well. No oxygen needed. - Objective Resuscitation Status: Resuscitation Status FULL:Full Resuscitation MAR Reviewed: Yes Vital Signs & Weight: Vital Signs (12 hours) Temp Pulse Resp BP BP Pulse Ox 07/31/17 08:00 97.8 F 92 16 158/75 H 07/31/17 07:08 85 18 93 L 07/31/17 04:00 98.3 F 75 18 149/70 H 96 07/31/17 01:07 94 L 07/31/17 00:05 72 18 96 Weight Weight 190 lb 8 oz Most Recent Monitor Data Heart Rate from ECG 85 NIBP 150/62 NIBP BP-Mean 104 Respiration from ECG 31 SpO2 91 I&O: 07/30/17 07/31/17 08/01/17 06:59 06:59 06:59 Intake Total 1370 1410 Output Total 1125 Balance 1370 285 Result Diagrams: 07/31/17 04:30 07/31/17 04:30 Additional Labs: Accuchecks 07/31/17 07/30/17 07/30/17 06:35 20:31 17:23 POC Glucose 324 H 361 H 478 H 07/30/17 11:32 POC Glucose 409 H Phys Exam - Physical Examination Constitutional: NAD HEENT: moist MMs Respiratory: no wheezing, no rales, no rhonchi Cardiovascular: RRR, no significant murmur Gastrointestinal: soft, positive bowel sounds Musculoskeletal: no edema Neurological: non-focal, moves all 4 limbs Psychiatric: normal affect, A&O x 3 Dx/Plan (1) PNA (pneumonia) Code(s): J18.9 - PNEUMONIA, UNSPECIFIED ORGANISM Status: Acute Qualifiers: Pneumonia type: due to unspecified organism Laterality: bilateral Comment: community acquired, on chronic immunosupression, switch to oral Levaquin and Omnicef 07/31/17 (2) Acute exacerbation of CHF (congestive heart failure) Code(s): I50.9 - HEART FAILURE, UNSPECIFIED Status: Acute Qualifiers: Congestive heart failure type: diastolic Qualified Code(s): I50.33 - Acute on chronic diastolic (congestive) heart failure Comment: ef of 50% (3) Sepsis Code(s): A41.9 - SEPSIS, UNSPECIFIED ORGANISM Status: Acute Qualifiers: Sepsis type: sepsis due to unspecified organism Qualified Code(s): A41.9 - Sepsis, unspecified organism (4) H/O kidney transplant Status: Chronic (5) Immunosuppressed status Code(s): D89.9 - DISORDER INVOLVING THE IMMUNE MECHANISM, UNSPECIFIED Status: Chronic (6) Acute respiratory failure with hypoxia Code(s): J96.01 - ACUTE RESPIRATORY FAILURE WITH HYPOXIA Status: Resolved Comment: is off bipap (7) CAD (coronary artery disease) Code(s): I25.10 - ATHSCL HEART DISEASE OF [place] CORONARY ARTERY W/O ANG PCTRS Status: Chronic Qualifiers: Coronary Disease-Associated Artery/Lesion type: [place] artery [place] vs. transplanted heart: [place] heart Associated angina: without angina Qualified Code(s): I25.10 - Atherosclerotic heart disease of [place] coronary artery without angina pectoris (8) HTN (hypertension) Code(s): I10 - ESSENTIAL (PRIMARY) HYPERTENSION Status: Chronic Qualifiers: Hypertension type: essential hypertension Qualified Code(s): I10 - Essential (primary) hypertension - Plan cont current plan of care, continue antibiotics Switch to oral abx. If still improved tomorrow can likely go home. Case -: discussed with Dr. Johnson and he is agreeable with oral Levaquin and -: Omnicef. * . - Discharge Day Encounter end time: 09:30
[2017-07-31] MEDS: Carvedilol 6.25 MG TAB PO SCH ×2 (08:54→21:06)
[2017-07-31] MEDS: Valsartan 80 MG TAB PO SCH (08:54)
[2017-07-31] MEDS: Amiodarone 200 MG TAB PO SCH (08:54)
[2017-07-31] MEDS: Famotidine 20 MG TAB PO SCH ×2 (08:54→21:06)
[2017-07-31] MEDS: Potassium Chloride 20 MEQ TAB PO SCH (08:54)
[2017-07-31] MEDS: predniSONE 20 MG TAB PO SCH ×2 (08:54→21:07)
[2017-07-31] MEDS: Docusate 100 MG CAP PO SCH ×2 (08:54→21:06)
[2017-07-31] MEDS: Insulin Detemir 100 UNITS/ML 15 UNITS in Pre-Filled Syringe SC SCH ×2 (08:55→21:07)
[2017-07-31] MEDS: HumaLOG 300 UNITS/3 ML VIAL SC PRN ×4 (08:57→21:08)
[2017-07-31] MEDS: Cefepime 1 GM, Admixture Fee 1 EACH in Sterile Water 10 ML SLOW IVP SCH (09:04)
[2017-07-31] MEDS: Cepastat Lozenges 1 LOZ PO PRN (10:12)
[2017-07-31] MEDS: Mycophenolate 250 MG CAP PO SCH ×2 (10:13→21:03)
--- NOTE | 2017-07-31 10:29 | PRG ---
DATE OF SERVICE: 07/31/2017 SUBJECTIVE: He is doing well, has no complaints. PHYSICAL EXAMINATION: VITAL SIGNS: Temperature 97.8, pulse 90, blood pressure 158/75 and O2 sat 93%. HEENT: Unremarkable. NECK: Supple. No JVD. CHEST: Clear. CARDIAC: S1 and S2 regular. ABDOMEN: Soft. EXTREMITIES: No edema. ASSESSMENT: 1. Congestive heart failure. 2. Question of concurrent pneumonia. PLAN: He has been switched to oral antibiotics. I think he is okay to go home. He can follow up wi th his primary doctor as an outpatient.
[2017-07-31] MEDS: Rivaroxaban 10 MG TAB PO SCH (16:57)
[2017-07-31] MEDS: Cefdinir 300 MG CAP PO SCH (21:06)
[2017-07-31] MEDS: Atorvastatin Calcium 10 MG TAB PO SCH (21:07)
[2017-07-31 23:49] LABS: Bilirubin Negative (Negative); Blood, Urine Negative (Negative); Glucose, Urine (Dipstick) >=1000 mg/dL (Negative); Ketone, Urine Negative (Negative); Nitrite Negative (Negative); Protein, Urine (Dipstick) Negative (Neg-Trace)
[2017-07-31 23:54] LABS: Bacteria/HPF Rare-Few HPF (None Seen); Hyaline Casts/LPF 0-3 HYALINE CAST LPF (0-3 Hyaline); RBC/HPF 0-3 HPF (0-3); Squamous Epithelial None Seen HPF (0-3); WBC/HPF None Seen HPF (0-3)
[2017-07-31 23:59] LABS: LegU Control Bar Appear? YES (CONTROL BAR); LegionellaU Control Bkground? CLEAR/WHITE (CLR/WHITE); Strp pneuU Control Background? CLEAR/WHITE (CLR/WHITE); Strp pneumo Control Bar Appear YES (CONTROL BAR)
[2017-08-01] MEDS: Furosemide 40 MG/4 ML VIAL SLOW IVP SCH (05:54)
[2017-08-01] MEDS: HumaLOG 300 UNITS/3 ML VIAL SC PRN ×2 (06:02→12:31)
--- NOTE | 2017-08-01 08:41 | PDOC.PN ---
- Subjective Encounter Start Date: 08/01/17 Encounter Start Time: 07:30 Expresses no complaint. - Objective Resuscitation Status: Resuscitation Status FULL:Full Resuscitation Vital Signs & Weight: Vital Signs (12 hours) Temp Pulse Resp BP BP BP Pulse Ox 08/01/17 07:33 97 08/01/17 07:31 70 16 08/01/17 04:00 99.0 F 77 18 165/80 H 96 08/01/17 03:45 99.0 F 77 18 165/80 H 96 08/01/17 00:53 98 08/01/17 00:52 98 07/31/17 21:06 143/67 H Weight Weight 197 lb 12.8 oz Most Recent Monitor Data Heart Rate from ECG 85 NIBP 150/62 NIBP BP-Mean 104 Respiration from ECG 31 SpO2 91 I&O: 07/31/17 08/01/17 08/02/17 06:59 06:59 06:59 Intake Total 1410 1994 Output Total 1125 3525 Balance 285 -1531 Result Diagrams: 07/31/17 04:30 07/31/17 04:30 Additional Labs: Accuchecks 08/01/17 07/31/17 07/31/17 05:56 20:32 16:40 POC Glucose 331 H 356 H 184 H 07/31/17 10:37 POC Glucose 348 H Phys Exam - Physical Examination Constitutional: NAD Neck: no JVD Respiratory: clear to auscultation bilateral Cardiovascular: irregular Gastrointestinal: soft Musculoskeletal: no edema Neurological: moves all 4 limbs Psychiatric: A&O x 3 Dx/Plan - Plan -: Doing well Home today. -: f/u with pcp. * .
[2017-08-01] MEDS ORDERED: DOCUSATE SODIUM 100 MG PO PRN (08:51)
[2017-08-01] MEDS ORDERED: Calcium Carbonate 500 MG ChewTAB PO PRN (08:51)
[2017-08-01] MEDS ORDERED: HumaLOG 300 UNITS/3 ML VIAL SC PRN ×2 (08:51→09:07)
[2017-08-01] MEDS ORDERED: Non-Formulary Item 1 EACH (Prednisone [Prednisone] 5 MG) PO SCH (09:00)
[2017-08-01] MEDS ORDERED: MYCOPHENOLATE MOFETIL 500 MG PO SCH (09:00)
[2017-08-01] MEDS ORDERED: Amlodipine 10 MG TAB PO SCH (09:00)
[2017-08-01] MEDS ORDERED: Valsartan 80 MG TAB PO SCH (09:00)
[2017-08-01] MEDS ORDERED: Tacrolimus 1 MG CAP PO SCH (09:00)
[2017-08-01] MEDS ORDERED: Furosemide 20 MG TAB PO SCH (09:00)
[2017-08-01] MEDS ORDERED: Carvedilol 25 MG TAB PO SCH (09:00)
[2017-08-01] MEDS ORDERED: Non-Formulary Item 1 EACH (Rivaroxaban [Xarelto] 20 MG) PO SCH (09:00)
--- NOTE | 2017-08-01 09:06 | DIS ---
DATE OF ADMISSION: 07/27/2017 DATE OF DISCHARGE: 08/01/2017 ADMITTING DIAGNOSES: 1. Acute hypoxic respiratory failure. 2. Chronic atrial fibrillation. 3. Coronary artery disease. 4. Obstructive sleep apnea. 5. Diabetes mellitus. 6. Hypertension. 7. History of congestive heart failure. 8. Status post kidney transplant. CONSULTANTS: Dr. Jeff, Dr. Early, Dr. Johnson PROCEDURE: Echocardiogram, chest x-ray. COURSE OF HOSPITALIZATION: Uncomplicated, responded well to management. The patient is clinically s table at this time, being discharged home. DISCHARGE MEDICATIONS: Please see discharge medication reconciliation sheet. The patient is to follow up with his primary care physician and also with his lifestyle director and also P veronica. For today's physical examination, please refer to the patient's medical record progress note section. Discharge time 32 minutes.
[2017-08-01] MEDS ORDERED: Docusate 100 MG CAP PO PRN (09:13)
[2017-08-01] MEDS: Carvedilol 6.25 MG TAB PO SCH (09:27)
[2017-08-01] MEDS: predniSONE 20 MG TAB PO SCH (09:27)
[2017-08-01] MEDS: Mycophenolate 250 MG CAP PO SCH (09:27)
[2017-08-01] MEDS: Insulin Detemir 100 UNITS/ML 15 UNITS in Pre-Filled Syringe SC SCH (09:38)
[2017-08-01] MEDS: Valsartan 80 MG TAB PO SCH (09:40)
[2017-08-01] MEDS: Famotidine 20 MG TAB PO SCH (09:42)
[2017-08-01] MEDS: Potassium Chloride 20 MEQ TAB PO SCH (09:42)
[2017-08-01] MEDS: Docusate 100 MG CAP PO SCH (09:42)
[2017-08-01] MEDS: Amiodarone 200 MG TAB PO SCH (09:44)
[2017-08-01] MEDS: Cefdinir 300 MG CAP PO SCH (09:45)
[2017-08-01] MEDS ORDERED: Mycophenolate 250 MG CAP PO SCH ×2 (09:45→21:00)
[2017-08-01] MEDS ORDERED: predniSONE 5 MG TAB PO SCH (09:45)
[2017-08-01 11:15] VITALS: BP 128/64; TEMP 97.9
[2017-08-01] MEDS ORDERED: Atorvastatin Calcium 10 MG TAB PO SCH (21:00)
[2017-08-01] MEDS ORDERED: Pravastatin Sodium 40 MG TAB PO SCH (21:00)
[2017-08-02] MEDS ORDERED: predniSONE 5 MG TAB PO SCH (09:00)
--- NOTE | 2017-08-14 16:48 | PQF ---
GENARO MERCADO JR, VINAYA KUMAR MD [id number] DATE: 08/12/17 Please exercise your independent, professional judgment in responding to the clarification form. Clinical indicators are provided on the bottom of this form for your review PLEASE CLARIFY SEPSIS-REQUESTED BY [facility]. Please check appropriate box(s): [ ] Sepsis due to: (Pna, UTI, gangrenous gall bladder, etc.) Due to: [ ] Device (please specify) [ ] Implant [ ] Graft [ ] Infusion [ ] SIRS due to non-infectious process (please specify etiology) [ ] with organ dysfunction [ ] without organ dysfunction [ ] Severe sepsis with acute organ dysfunction of: (Examples: respiratory failure, encephalopathy, acute kidney failure, other) [ ] Localized infection without sepsis [ x] Other diagnosis this has been documented in my progress note [ ] Unable to determine In addition, please specify: Present on Admission (POA): [ ] Yes [ ] No [ ] Unable to determine For continuity of documentation, please document condition throughout progress notes and discharge summary. Thank You. CLINICAL INDICATORS - SIGNS / SYMPTOMS / LABS Altered mental status Fever or hypothermia (<96.8 F/36 C or > 100.4 F/38C) Respiratory rate >22/min, Hypoxemia, SBP <100mmHg Metabolic acidosis Lactic Acid >2mmol/L, Increase BUN/Shipfitter, decrease GFR, coag abnormalities, thrombocytopenia-plts <100k Oliguria Shock-hypotension resistant to IV fluid boluses WBC count (>12,000/mm^4 or <4000/mm^3 or 10% neuts, 10% bands) Hyperglycemia in absence of diabetes mellitus Positive blood cultures RISK FACTORS Infection/Bacteremia Pneumonia, UTI, infected wound, gangrenous gall bladder MTDD
--- NOTE | 2017-08-21 16:46 | PQF ---
GENARO MERCADO MOLLY BREWER [id number] CLINICAL DOCUMENTATION CLARIFICATION FORM: POST DISCHARGE DATE: 08/20/17 ATTN: Dr. Guzman Please exercise your independent, professional judgment in responding to the clarification form. Clinical indicators are provided on the bottom of this form for your review Please state whether patient had Sepsis as documented in the progress notes by Dr. Bianchi but no clinical criteria present. Please check appropriate box(s): [ ] Sepsis due to: (Pna, UTI, gangrenous gall bladder, etc.) Due to: [ ] Device (please specify) [ ] Implant [ ] Graft [ ] Infusion [ ] SIRS due to non-infectious process (please specify etiology) [ ] with organ dysfunction [ ] without organ dysfunction [ ] Severe sepsis with acute organ dysfunction of: (Examples: respiratory failure, encephalopathy, acute kidney failure, other) [ ] Localized infection without sepsis [ ] Other diagnosis [ ] Unable to determine In addition, please specify: Present on Admission (POA): [ ] Yes [ ] No [ ] Unable to determine For continuity of documentation, please document condition throughout progress notes and discharge summary. Thank You. CLINICAL INDICATORS - SIGNS / SYMPTOMS / LABS Altered mental status Fever or hypothermia (<96.8 F/36 C or > 100.4 F/38C) Respiratory rate >22/min, Hypoxemia, SBP <100mmHg Metabolic acidosis Lactic Acid >2mmol/L, Increase BUN/[employer], decrease GFR, coag abnormalities, thrombocytopenia-plts <100k Oliguria Shock-hypotension resistant to IV fluid boluses WBC count (>12,000/mm^4 or <4000/mm^3 or 10% neuts, 10% bands) Hyperglycemia in absence of diabetes mellitus Positive blood cultures RISK FACTORS Infection/Bacteremia Pneumonia, UTI, infected wound, gangrenous gall bladder Diabetes or Cancer Surgery / surgical instrumentation / trauma Ruptured/perforated bowel, ruptured appendix Immunosuppression Advancing Age TREATMENTS: Initiation Sepsis Protocol ICU Daily CBC Blood/sputum/wound cultures ID Consult IV antibiotics - broad spectrum IV Fluids Vasopressors, meds Sepsis is documented on hospitalist PN, his fever was in the transferring ED, his increased RR was noted to be to acute resp. failure d/t to chf exac. Lactic was 1.8 on admit, P86, BP 166/64 T 99.8 and WBC was elevated at 14. (This form is maintained as a part of the permanent medical record) 2014 [employer]. All Rights Reserved Eliana [email or web address] [phone] No evidence of SEPSIS.... MTDD
== END 2017-08-01 12:45 | disposition home or self-care (01) | DRG 871 ==
LOC: ERS 07:02 → CCU 09:36 → 2NO 07-28 22:36
PROVIDERS: ADMIT Internal Medicine; ATTEND Internal Medicine
PROC: 5A09357 Assistance with Respiratory Ventilation, Less than 24 Consecutive Hours, Continuous Positive Airway Pressure (ICD-10-PCS; principal; 2017-07-27)
DX: A41.9 Sepsis, unspecified organism (principal); J96.01 Acute respiratory failure with hypoxia; I50.33 Acute on chronic diastolic (congestive) heart failure; I48.2 Chronic atrial fibrillation; I11.0 Hypertensive heart disease with heart failure; J18.9 Pneumonia, unspecified organism; I48.92 Unspecified atrial flutter; Z94.0 Kidney transplant status; R04.2 Hemoptysis; R65.20 Severe sepsis without septic shock; Z79.01 Long term (current) use of anticoagulants; I25.10 Atherosclerotic heart disease of native coronary artery without angina pectoris; Z95.5 Presence of coronary angioplasty implant and graft; G47.33 Obstructive sleep apnea (adult) (pediatric); E11.9 Type 2 diabetes mellitus without complications; E78.5 Hyperlipidemia, unspecified; I44.7 Left bundle-branch block, unspecified; Z79.899 Other long term (current) drug therapy
CPT/HCPCS: 36415; 36416; 71010; 80048; 80202; 81001; 82805; 83605; 83880; 85025; 87086; 87389; 87449; 87497; 87633; 87899; 90471; 90682; 90732; 93005; 93306; 93798; 94640; 94760; 96374; A4216; G0008; G0009; J0692; J1815; J1940; J1956; J2920; J3370; J7506; J7507; J7517; J7620; Q2036